=== PATIENT | male | born 1955 | race African-American/Black ===

== ENCOUNTER 2016-12-02 10:19 | Emergency (ER) | payer MEDICARE, MEDICAID, OTHER ==
[~2016-12-02] VITALS: Ht 193 cm; Wt 81.5 kg
[~2016-12-02 10:19] MED LIST: ASPI81 PO; CENTTAB9 PO; LORTA10 PO; METO25 PO; MUSCLE RELAXER PO; NITR0.4S SL
[2016-12-02 10:21] VITALS: BP 161/97; PULSE 98; RESP 15; TEMP 98.2; O2SAT 99
[2016-12-02] MEDS ORDERED: ASPI1TAB69 PO (10:36)
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
[2016-12-02] MEDS ORDERED: LIDOCAINE HCL 1% 50 ML VIAL ONE (12:26)
[2016-12-02] MEDS ORDERED: LIDOCAINE HCL 1% 50 ML VIAL INFIL ONE (12:30)
[2016-12-02] MEDS ORDERED: TETANUS/DIPHTHERIA TOXOID ADULT 0.5 ML VIAL IM ONE (12:45)
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
== END 2016-12-02 12:59 | disposition home or self-care (01) ==
LOC: NEPD 10:19
DX: S80.252A Superficial foreign body, left knee, initial encounter (principal); I10 Essential (primary) hypertension; I25.2 Old myocardial infarction; Z72.0 Tobacco use; F12.90 Cannabis use, unspecified, uncomplicated; F14.90 Cocaine use, unspecified, uncomplicated; Z23 Encounter for immunization; W25.XXXA Contact with sharp glass, initial encounter; Z79.82 Long term (current) use of aspirin
CPT/HCPCS: 10120; 73564; 90471; 90714